=== PATIENT | female | born 1980 | race African-American/Black ===

== ENCOUNTER 2016-08-26 08:25 | Emergency (ER) | payer BC ==
[~2016-08-26] VITALS: Ht 170.2 cm; Wt 108.4 kg
[2016-08-26 09:07] LABS: BASO % 0 % (0-3); EOS % 0 % (0-3); HEMATOCRIT 39.7 % (36.0-47.0); HEMOGLOBIN 13.3 g/dL (12.0-15.5); LYMPH # 0.8 x10^3/uL (1.0-4.8); LYMPH % 7 % (24-48); MEAN CORPUSCULAR HEMOGLOBIN 28 pg (25-35); MEAN CORPUSCULAR HGB CONC 34 g/dL (31-37); MEAN CORPUSCULAR VOLUME 82 fL (79-100); MONO % 3 % (0-9); NEUT % 89 % (31-73); PLATELET COUNT 243 x10^3/uL (140-400); RED BLOOD COUNT 4.82 x10^6/uL (3.50-5.40); RED CELL DISTRIBUTION WIDTH 15.6 % (11.5-14.5); WHITE BLOOD COUNT 10.8 x10^3/uL (4.0-11.0)
[2016-08-26 09:12] LABS: CALCIUM 9.2 mg/dL (8.5-10.1); CREATININE 0.7 mg/dL (0.6-1.0); GFR 94.7; MAGNESIUM 1.5 mg/dL (1.8-2.4); POTASSIUM 3.4 mmol/L (3.5-5.1)
[2016-08-26] MEDS ORDERED: MAG HYDROX/AL HYDROX/SIMETH 30 ML ORAL.SUSP PO ONE (09:15)
[2016-08-26] MEDS ORDERED: ONDANSETRON PF 4 MG/2 ML VIAL. IV ONE (09:15)
[2016-08-26] MEDS ORDERED: LIDOCAINE 2% VISCOUS 15 ML SOLUTION. SWSW ONE ×2 (09:15)
[2016-08-26] MEDS ORDERED: IV NORMAL SALINE 1000ML BAG 1,000 ML IV SCH (09:15)
[2016-08-26] MEDS ORDERED: ALBUTEROL SULFATE 2.5 MG/3 ML NEBU. NEB ONE (09:15)
--- NOTE | 2016-08-26 09:19 | EKG ---
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
[2016-08-26 09:23] LABS: BACTERIA,URINE FEW /HPF (0-FEW); BILIRUBIN,URINE NEGATIVE (NEG); GLUCOSE,URINE 250 mg/dL (NEG); NITRITE,URINE NEGATIVE (NEG); PROTEIN,URINE NEGATIVE (NEG-TRACE); RBC,URINE 0 /HPF (0-2); SQUAMOUS EPITHELIAL CELL,UR MOD /LPF; UROBILINOGEN,URINE 0.2 mg/dL (0.2 mg/dL)
[2016-08-26 09:27] LABS: CKMB MASS 0.8 ng/mL (0.0-3.6); CREATINE KINASE 64 U/L (26-192)
[2016-08-26] MEDS ORDERED: MAGNESIUM SULFATE 1GM 100 ML IV ONE (09:30)
[2016-08-26 09:38] LABS: OBC FLU VALID
[2016-08-26] MEDS ORDERED: LABETALOL 20 MG/4 ML DISP.SYRIN. IVP ONE (09:45)
--- NOTE | 2016-08-26 09:58 | PHYS DOC ---
Past Medical History Past Medical History: Depression Past Surgical History: Tonsillectomy Additional Past Surgical Histo: GASTRIC SLEEVE Additional Information: 2 CIGS/DAY Drug Use: None Adult General Chief Complaint Chief Complaint: CHEST PAIN HPI HPI Patient is a 36 year old female who presents with complaint of chest pressure. Patient states that this started this morning upon awakening. Patient states that she is currently 17 weeks . Patient is . Patient follows with an SECURITIES SUPERVISOR physician at [facility]. Patient denies any history of similar symptoms. Patient states that she has been having difficulty with vomiting during and has been having vomiting prior to symptom onset. Patient denies any heartburn or GERD symptoms. Patient has been taking Phenergan at home with no relief in symptoms. Patient states that she has had productive cough of green sputum. Patient denies fevers or chills. Patient states that her pressure is not worsened by breathing. Patient denies radiation of pain. Patient rates her pain currently as 6 out of 10. Review of Systems Review of Systems Constitutional: Denies fever or chills [] Eyes: Denies change in visual acuity, redness, or eye pain [] HENT: Denies nasal congestion or sore throat [] Respiratory: Productive cough [] Cardiovascular: Chest pain [] GI: Nausea, vomiting, denies abdominal pain bloody stools or diarrhea [] : Denies dysuria or hematuria [] Musculoskeletal: Denies back pain or joint pain [] Integument: Denies rash or skin lesions [] Neurologic: Denies headache, focal weakness or sensory changes [] Current Medications Current Medications Current Medications Medications (Trade) Dose Ordered Sig/Thea Start Time Stop Time Status Last Admin Dose Admin Al Hydroxide/Mg Hydroxide (Mylanta Plus Xs) 30 ml 1X ONCE 08/26/16 09:15 08/26/16 09:16 DC 08/26/16 10:28 30 ML Albuterol Sulfate (Ventolin Neb Soln) 2.5 mg 1X ONCE 08/26/16 09:15 08/26/16 09:16 DC 08/26/16 09:16 2.5 MG Labetalol HCl (Normodyne) 20 mg 1X ONCE 08/26/16 09:45 08/26/16 09:46 DC 08/26/16 10:08 20 MG Lidocaine HCl (Viscous Lidocaine) 15 ml 1X ONCE 08/26/16 09:15 08/26/16 09:15 DC Lidocaine HCl 10 ml 10 ml 1X ONCE 08/26/16 09:15 08/26/16 09:16 DC 08/26/16 10:28 10 ML Magnesium Sulfate/ Dextrose (Magnesium Sulfate PREMIX 1GM) 100 ml @ 100 mls/hr 1X ONCE 08/26/16 09:30 08/26/16 10:29 DC 08/26/16 10:04 100 MLS/HR Ondansetron HCl (Zofran) 4 mg 1X ONCE 08/26/16 09:15 08/26/16 09:16 DC 08/26/16 09:02 4 MG Promethazine HCl (Phenergan Im) 25 mg 1X ONCE 08/26/16 10:00 08/26/16 10:01 DC 08/26/16 09:59 25 MG Sodium Chloride (Iv Sodium Chloride 0.9% 1000ml Bag) 1,000 ml @ 1,000 mls/hr Q1H 08/26/16 09:15 08/26/16 10:14 DC 08/26/16 09:02 1,000 MLS/HR Allergies Allergies Allergies Coded Allergies Type Severity Reaction Last Updated Verified amoxicillin Allergy Intermediate Hives 08/26/16 Yes clavulanic acid Allergy Intermediate Hives 08/26/16 Yes Physical Exam Physical Exam Constitutional: Alert, afebrile, appears in mild to moderate discomfort. [] HENT: Normocephalic, atraumatic, bilateral external ears normal, oropharynx moist, no oral exudates, nose normal. [] Eyes: PERRLA, EOMI, conjunctiva normal, no discharge. [] Neck: Normal range of motion, no tenderness, supple, no stridor. [] Cardiovascular:Heart rate regular rhythm, no murmur [] Lungs & Thorax: Mildly restricted air movement bilaterally, occasional wheezes, no rales [] Abdomen: Bowel sounds normal, soft, no tenderness, no masses, no pulsatile masses. [] Skin: Warm, dry, no erythema, no rash. [] Back: No tenderness, no CVA tenderness. [] Extremities: No tenderness, no cyanosis, no clubbing, ROM intact, no edema. [] Neurologic: Alert and oriented X 3, normal motor function, normal sensory function, no focal deficits noted. [] Current Patient Data Vital Signs Vital Signs Date Time Temp Pulse Resp B/P Pulse Ox O2 Delivery O2 Flow Rate FiO2 08/26/16 10:08 70 189/89 08/26/16 09:16 99 Room Air 08/26/16 08:37 98.1 18 98.1 Lab Values Laboratory Tests Test 08/26/16 08:41 08/26/16 09:05 White Blood Count 10.8x10^3/uL (4.0-11.0) Red Blood Count 4.82x10^6/uL (3.50-5.40) Hemoglobin 13.3g/dL (12.0-15.5) Hematocrit 39.7% (36.0-47.0) Mean Corpuscular Volume 82fL (79-100) Mean Corpuscular Hemoglobin 28pg (25-35) Mean Corpuscular Hemoglobin Concent 34g/dL (31-37) Red Cell Distribution Width 15.6% (11.5-14.5) H Platelet Count 243x10^3/uL (140-400) Neutrophils (%) (Auto) 89% (31-73) H Lymphocytes (%) (Auto) 7% (24-48) L Monocytes (%) (Auto) 3% (0-9) Eosinophils (%) (Auto) 0% (0-3) Basophils (%) (Auto) 0% (0-3) Neutrophils # (Auto) 9.7x10^3uL (1.8-7.7) H Lymphocytes # (Auto) 0.8x10^3/uL (1.0-4.8) L Monocytes # (Auto) 0.3x10^3/uL (0.0-1.1) Eosinophils # (Auto) 0.0x10^3/uL (0.0-0.7) Basophils # (Auto) 0.0x10^3/uL (0.0-0.2) Segmented Neutrophils % 89% (35-66) H Lymphocytes % 10% (24-48) L Monocytes % 1% (0-10) Platelet Estimate Adequate (ADEQUATE) Anisocytosis Present D-Dimer (Rosana) 0.29ug/mlFEU (0.00-0.50) Urine Collection Type Unknown Urine Color Yellow Urine Clarity Clear Urine pH 6.0 Urine Specific [place] 1.020 Urine Protein Negativemg/dL (NEG-TRACE) Urine Glucose (UA) 250mg/dL (NEG) Urine Ketones (Stick) >=80mg/dL (NEG) Urine Blood Negative (NEG) Urine Nitrite Negative (NEG) Urine Bilirubin Negative (NEG) Urine Urobilinogen Dipstick 0.2mg/dL (0.2 mg/dL) Urine Leukocyte Esterase Small (NEG) Urine RBC 0/HPF (0-2) Urine WBC 1-4/HPF (0-4) Urine Squamous Epithelial Cells Mod/LPF Urine Bacteria Few/HPF (0-FEW) Urine Mucus Mod/LPF Sodium Level 139mmol/L (136-145) Potassium Level 3.4mmol/L (3.5-5.1) L Chloride Level 100mmol/L (98-107) Carbon Dioxide Level 26mmol/L (21-32) Anion Gap 13 (6-14) Blood Urea Nitrogen 14mg/dL (7-20) Creatinine 0.7mg/dL (0.6-1.0) Estimated GFR (Cockcroft-Gault) 94.7 Glucose Level 139mg/dL (70-99) H Calcium Level 9.2mg/dL (8.5-10.1) Magnesium Level 1.5mg/dL (1.8-2.4) L Creatine Kinase 64U/L (26-192) Creatine Kinase MB (Mass) 0.8ng/mL (0.0-3.6) Creatine Kinase MB Relative Index % (0-4) Troponin I Quantitative < 0.017ng/mL (0.000-0.055) TN-Fyn-X-Type Natriuretic Peptide 44pg/mL (0-124) Influenza Type A Antigen Negative (NEGATIVE) Influenza Type B Antigen Negative (NEGATIVE) Laboratory Tests 08/26/16 08:41 Laboratory Tests 08/26/16 08:41 EKG EKG Interpreted by me: Heart rate 62, sinus rhythm, normal intervals, normal axis, no acute ST/T-wave abnormalities present [] Radiology/Procedures Radiology/Procedures Not performed [] Course & Med Decision Making Course & Med Decision Making Pertinent Labs and Imaging studies reviewed. (See chart for details) Patient was given Maalox and viscous lidocaine as well as albuterol. On reevaluation, patient states that she is still having nausea. The patient was given IM Phenergan which helped with her nausea. A bedside ultrasound was done and showed a viable intrauterine with heart rate of 149 bpm. Patient was found to be significantly hypertensive in the emergency department and was given IV labetalol. The patient's last blood pressure check was 130/63. The patient had sustained high blood pressure until treatment. I believe this patient will need to be on hypertensive medication and we'll start oral labetalol at home. Advised follow-up in 3 days with patient's SECURITIES SUPERVISOR doctor. Advised return emergency department for any worsening symptoms. Patient voiced understanding and in agreement with treatment plan. Dragon Disclaimer Dragon Disclaimer This electronic medical record was generated, in whole or in part, using a voice recognition dictation system. Departure Departure Impression: Primary Impression: Hypertension during Additional Impressions: Hypomagnesemia Vomiting during Disposition: 01 HOME, SELF-CARE Condition: IMPROVED Referrals: NO PCP (PCP) Patient Instructions: Hypertension During , Nausea and Vomiting Additional Instructions: Follow-up with your SECURITIES SUPERVISOR in 3 days. Return to the emergency department for any worsening symptoms. Scripts Labetalol Hcl 100 Mg Tablet1 Tab PO BID #60 TAB Ref 0 Prov:VICTORINO ALVARADO MD 08/26/16 Problem Qualifiers Primary Impression: Hypertension during Hypertension in type: gestational hypertension without significant proteinuria Trimester: second trimester Qualified Code: O13.2 - Gestational [-induced] hypertension without significant proteinuria, second trimester VICTORINO ALVARADO MD Aug 26, 2016 09:58
[2016-08-26] MEDS ORDERED: PROMETHAZINE IM 25 MG/ML VIAL IM ONE (10:00)
[2016-08-26 10:12] LABS: ANISOCYTOSIS PRESENT; PLT ESTIMATE ADEQUATE (ADEQUATE)
[2016-08-26] MEDS ORDERED: LABE100T3 PO (11:10)
[2016-08-26 11:30] VITALS: BP 157/87
[2016-08-26 12:02] LABS: ALBUMIN 3.4 g/dL (3.4-5.0); DIRECT BILIRUBIN 0.1 mg/dL (0.0-0.2); TOTAL BILIRUBIN 0.3 mg/dL (0.2-1.0); TOTAL PROTEIN 7.5 g/dL (6.4-8.2)
== END 2016-08-26 11:47 | disposition home or self-care (01) ==
LOC: ER 08:25
DX: O16.2 Unspecified maternal hypertension, second trimester (principal); O99.282 Endocrine, nutritional and metabolic diseases complicating pregnancy, second trimester; E83.42 Hypomagnesemia; O21.0 Mild hyperemesis gravidarum; O26.892 Other specified pregnancy related conditions, second trimester; R05 Cough; R06.2 Wheezing; O99.342 Other mental disorders complicating pregnancy, second trimester; F32.9 Major depressive disorder, single episode, unspecified; O99.332 Smoking (tobacco) complicating pregnancy, second trimester; Z98.84 Bariatric surgery status; Z3A.17 17 weeks gestation of pregnancy; Z88.8 Allergy status to other drugs, medicaments and biological substances; Z88.1 Allergy status to other antibiotic agents
CPT/HCPCS: 36415; 80048; 80076; 81001; 82553; 83735; 83880; 84484; 85007; 85027; 85379; 87086; 87804; 93005; 96361; 96365; 96366; 96372; 96375; 99285; J2405; J2550; J3475; J3490; J7030

== ENCOUNTER 2016-10-17 15:33 | Inpatient (IN) | payer BC ==
[~2016-10-17] VITALS: Ht 170.2 cm; Wt 113.4 kg
[~2016-10-17 15:33] MED LIST: LABE100T3 PO
--- NOTE | 2016-10-17 15:59 | PHYS DOC ---
Past Medical History Past Medical History: Depression, Other Additional Past Medical Histor: "PANIC ATTACKS" Past Surgical History: Tonsillectomy Additional Past Surgical Histo: GASTRIC SLEEVE Alcohol Use: None Drug Use: None Adult General Chief Complaint Chief Complaint: CHEST WALL PAIN HPI HPI 36-year-old female who states she's had significant chest pressure sensation someone sitting on her chest for the last day. She is had significant nausea and vomiting throughout her and is actively vomiting in the room. Patient was seen several weeks ago and had an elevated blood pressure at that time was prescribed oral medications for several days but her blood pressure returned to normal she states. She's been on multiple medications for nausea but states nothing has been successful. This is her third the first of which were full-term without complication and a second was a miscarriage approximately 4 months in the . Today she states she is at an estimated 25 weeks gestation and had a ultrasound several weeks ago that was otherwise normal. She follows up with OB care in [place]. She states she normally does not have issues with her blood pressure when she is not . She denies any significant shortness of breath. She does have some mild abdominal pain for the past two days but denies any vaginal bleeding or discharge. Review of Systems Review of Systems Constitutional: Denies fever or chills [] Eyes: Denies change in visual acuity, redness, or eye pain [] HENT: Denies nasal congestion or sore throat [] Respiratory: Denies cough or shortness of breath [] Cardiovascular: No additional information not addressed in HPI [] GI: Has abdominal pain, has nausea, has vomiting, denies bloody stools or diarrhea [] : Denies dysuria or hematuria [] Musculoskeletal: Denies back pain or joint pain [] Integument: Denies rash or skin lesions [] Neurologic: Denies headache, focal weakness or sensory changes [] Endocrine: Denies polyuria or polydipsia [] Current Medications Current Medications Current Medications Medications (Trade) Dose Ordered Sig/Thea Start Time Stop Time Status Last Admin Dose Admin Labetalol HCl (Normodyne) 20 mg 1X ONCE 10/17/16 16:00 10/17/16 16:01 DC 10/17/16 16:01 20 MG Metoclopramide HCl (Reglan) 10 mg 1X ONCE 10/17/16 16:00 10/17/16 16:01 DC 10/17/16 16:01 10 MG Sodium Chloride (Iv Sodium Chloride 0.9% 1000ml Bag) 1,000 ml @ 1,000 mls/hr 1X ONCE 10/17/16 16:00 10/17/16 16:59 DC 10/17/16 16:00 1,000 MLS/HR Allergies Allergies Allergies Coded Allergies Type Severity Reaction Last Updated Verified amoxicillin Allergy Intermediate Hives 08/26/16 Yes clavulanic acid Allergy Intermediate Hives 08/26/16 Yes Physical Exam Physical Exam Constitutional: Well developed, well nourished, no acute distress, non-toxic appearance. [] HENT: Normocephalic, atraumatic, bilateral external ears normal, oropharynx moist, no oral exudates, nose normal. [] Eyes: PERRLA, EOMI, conjunctiva normal, no discharge. [] Neck: Normal range of motion, no tenderness, supple, no stridor. [] Cardiovascular:Heart rate regular rhythm, no murmur [] Lungs & Thorax: Bilateral breath sounds clear to auscultation [] Abdomen: Bowel sounds normal, soft, no tenderness, no masses, no pulsatile masses. [] Skin: Warm, dry, no erythema, no rash. [] Back: No tenderness, no CVA tenderness. [] Extremities: No tenderness, no cyanosis, no clubbing, ROM intact, no edema. [] Neurologic: Alert and oriented X 3, normal motor function, normal sensory function, no focal deficits noted. [] Psychologic: Affect normal, judgement normal, mood normal. [] Current Patient Data Vital Signs Vital Signs Date Time Temp Pulse Resp B/P Pulse Ox O2 Delivery O2 Flow Rate FiO2 10/17/16 16:08 89 18 144/80 99 Room Air 10/17/16 15:48 98.5 98.5 Lab Values Laboratory Tests Test 10/17/16 14:49 10/17/16 15:30 10/17/16 15:59 POC Urine HCG, Qualitative Hcg positive (Negative) Urine Color Yellow Urine Clarity Clear Urine pH 6.5 Urine Specific [place] 1.020 Urine Protein Negativemg/dL (NEG-TRACE) Urine Glucose (UA) Negativemg/dL (NEG) Urine Ketones (Stick) >=80mg/dL (NEG) Urine Blood Trace (NEG) Urine Nitrite Negative (NEG) Urine Bilirubin Negative (NEG) Urine Urobilinogen Dipstick 1.0mg/dL (0.2 mg/dL) Urine Leukocyte Esterase Moderate (NEG) Urine RBC Rare/HPF (0-2) Urine WBC 1-4/HPF (0-4) Urine Squamous Epithelial Cells Occ/LPF Urine Bacteria Few/HPF (0-FEW) Urine Mucus Slight/LPF White Blood Count 4.6x10^3/uL (4.0-11.0) Red Blood Count 3.71x10^6/uL (3.50-5.40) Hemoglobin 10.7g/dL (12.0-15.5) L Hematocrit 32.3% (36.0-47.0) L Mean Corpuscular Volume 87fL (79-100) Mean Corpuscular Hemoglobin 29pg (25-35) Mean Corpuscular Hemoglobin Concent 33g/dL (31-37) Red Cell Distribution Width 14.8% (11.5-14.5) H Platelet Count 148x10^3/uL (140-400) Neutrophils (%) (Auto) 76% (31-73) H Lymphocytes (%) (Auto) 10% (24-48) L Monocytes (%) (Auto) 13% (0-9) H Eosinophils (%) (Auto) 0% (0-3) Basophils (%) (Auto) 0% (0-3) Neutrophils # (Auto) 3.5x10^3uL (1.8-7.7) Lymphocytes # (Auto) 0.5x10^3/uL (1.0-4.8) L Monocytes # (Auto) 0.6x10^3/uL (0.0-1.1) Eosinophils # (Auto) 0.0x10^3/uL (0.0-0.7) Basophils # (Auto) 0.0x10^3/uL (0.0-0.2) Sodium Level 139mmol/L (136-145) Potassium Level 3.4mmol/L (3.5-5.1) L Chloride Level 103mmol/L (98-107) Carbon Dioxide Level 24mmol/L (21-32) Anion Gap 12 (6-14) Blood Urea Nitrogen 8mg/dL (7-20) Creatinine 0.6mg/dL (0.6-1.0) Estimated GFR (Cockcroft-Gault) 136.9 Glucose Level 92mg/dL (70-99) Calcium Level 8.8mg/dL (8.5-10.1) Total Bilirubin 0.2mg/dL (0.2-1.0) Direct Bilirubin 0.1mg/dL (0.0-0.2) Aspartate Amino Transferase (AST) 13U/L (15-37) L Alanine Aminotransferase (ALT) 19U/L (14-59) Alkaline Phosphatase 51U/L (46-116) Troponin I Quantitative < 0.017ng/mL (0.000-0.055) Total Protein 6.8g/dL (6.4-8.2) Albumin 3.0g/dL (3.4-5.0) L Laboratory Tests 10/17/16 15:59 Laboratory Tests 10/17/16 15:59 EKG EKG EKG as interpreted by me shows a sinus rhythm with a rate of 73 bpm. There are no acute ST findings in this EKG. This is a nonischemic EKG. Intervals are normal. Radiology/Procedures Radiology/Procedures [] Course & Med Decision Making Course & Med Decision Making Pertinent Labs and Imaging studies reviewed. (See chart for details) This 36-year-old female will be admitted for further observation and treatment due to the fact that she has an elevated blood pressure and is having ongoing chest pressure. A dose of IV labetalol and IV Reglan will be given as well as a fluid bolus. Full laboratory workup will be obtained. heart tones will be taken. Patient will then be admitted to the CONSULTING SOLUTION DIRECTOR floor for further observation and treatment. Her laboratory workup is unrevealing. A dose of IV labetalol improved her blood pressure 150/90. Patient is still symptomatic and actively vomiting. I discussed the need to admit the patient with the OB doctor, Dr. Zaragoza, who agreed to admit the patient for further evaluation treatment for ongoing hypertension and nausea and vomiting. She requested I order PRN Zofran for the patient's nausea. She'll be admitted for further evaluation and treatment. Dragon Disclaimer Dragon Disclaimer This electronic medical record was generated, in whole or in part, using a voice recognition dictation system. Departure Departure Impression: Primary Impression: Vomiting during Additional Impression: Hypertensive urgency Disposition: 09 ADMITTED INPATIENT Admitting Physician: Other Condition: STABLE Referrals: NO PCP (PCP) Problem Qualifiers THOMAS ESPINOZA DO Oct 17, 2016 15:59
[2016-10-17] MEDS ORDERED: LABETALOL 20 MG/4 ML DISP.SYRIN. IVP ONE (16:00)
[2016-10-17] MEDS ORDERED: METOCLOPRAMIDE HCL 10 MG/2 ML VIAL. IV ONE (16:00)
[2016-10-17] MEDS ORDERED: IV NORMAL SALINE 1000ML BAG 1,000 ML IV ONE (16:00)
[2016-10-17 16:08] LABS: BASO % 0 % (0-3); EOS % 0 % (0-3); HEMATOCRIT 32.3 % (36.0-47.0); HEMOGLOBIN 10.7 g/dL (12.0-15.5); LYMPH # 0.5 x10^3/uL (1.0-4.8); LYMPH % 10 % (24-48); MEAN CORPUSCULAR HEMOGLOBIN 29 pg (25-35); MEAN CORPUSCULAR HGB CONC 33 g/dL (31-37); MEAN CORPUSCULAR VOLUME 87 fL (79-100); MONO % 13 % (0-9); NEUT % 76 % (31-73); PLATELET COUNT 148 x10^3/uL (140-400); RED BLOOD COUNT 3.71 x10^6/uL (3.50-5.40); RED CELL DISTRIBUTION WIDTH 14.8 % (11.5-14.5); WHITE BLOOD COUNT 4.6 x10^3/uL (4.0-11.0)
[2016-10-17 16:22] LABS: BILIRUBIN,URINE NEGATIVE (NEG); GLUCOSE,URINE NEGATIVE (NEG); NITRITE,URINE NEGATIVE (NEG); PH,URINE 6.5; PROTEIN,URINE NEGATIVE (NEG-TRACE)
[2016-10-17 16:23] LABS: CALCIUM 8.8 mg/dL (8.5-10.1); CREATININE 0.6 mg/dL (0.6-1.0); GFR 136.9; POTASSIUM 3.4 mmol/L (3.5-5.1)
[2016-10-17 16:31] LABS: BACTERIA,URINE FEW /HPF (0-FEW); RBC,URINE RARE /HPF (0-2); SQUAMOUS EPITHELIAL CELL,UR OCC /LPF
[2016-10-17] MEDS ORDERED: IV NORMAL SALINE 1000ML BAG 1,000 ML IV SCH (16:36)
[2016-10-17] MEDS ORDERED: ACETAMINOPHEN 325 MG TABLET. PO PRN (16:45)
[2016-10-17 16:51] LABS: DIRECT BILIRUBIN 0.1 mg/dL (0.0-0.2); TOTAL BILIRUBIN 0.2 mg/dL (0.2-1.0); TOTAL PROTEIN 6.8 g/dL (6.4-8.2)
--- NOTE | 2016-10-17 17:06 | ACF ---
Admission Forms Criteria VOMITING Clinical Indications for Admission to Inpatient Care ( Place 'X' for any and all applicable criteria): Admission is indicated for ANY ONE of the following(1)(2)(3): [X]I. Inpatient admission required rather than observation care because of ANY ONE of the following: [ ]i) Hemodynamic instability that is severe or persistent [X]ii) Vomiting that is severe or persistent [ ]iii) Severe electrolyte abnormalities requiring inpatient care [ ]iv) Severe pain requiring acute inpatient management [ ]v) High fever or infection requiring inpatient admission as indicated by ANY ONE of the following(7)(8): [ ]1) Appropriate outpatient or observation care antimicrobial treatment unavailable, not effective, or not feasible [ ]2) Documented bacteremia [ ]3) Temp >104.9 degrees F (40.5 degrees C) (oral) [ ]4) Temp >103.1 degrees F (39.5 C) (oral) or <96.8 degrees F (36 C) (rectal) that does not respond to all emergency treatment measures [ ]vi) Acute renal failure [ ]vii) IV fluid to replace significant ongoing losses (greater than 3 L/m2 per day) [ ]viii) Parenteral nutrition regimen that must be implemented on inpatient basis [ ]ix) Other condition, treatment or monitoring requiring inpatient admission [ ]II. Complete or partial gastrointestinal obstruction [ ]III. Other cause of vomiting requiring hospitalization (eg, poisoning, increased intracranial pressure) [ ]IV. Vomiting due to significant metabolic derangement (eg, severe hypercalcemia, diabetic ketoacidosis) Extended stay beyond goal length of stay may be needed for(1)(4): [ ]a) Severe vomiting [ ]b) Persistent vomiting, vital sign changes, severe electrolyte imbalance , or diagnosed cause of vomiting that requires continued hospitalization (eg, gastrointestinal obstruction , increased intracranial pressure) [ ]c) Surgery to treat identified causes of vomiting (eg, bowel obstruction , intracranial process) [ ]d) Comorbid illness that requires inpatient care (eg, acute heart failure , renal failure) [ ]e) Need for inpatient endoscopy The original [employer] [employer] content created by [email or web address] has been revised. The portions of the content which have been revised are identified through the use of italic text or in bold, and [facility] [employer] has neither reviewed nor approved the modified material. All other unmodified content is copyright [facility]. Please see references footnoted in the original [facility] edition 2016 Admission Criteria Met?: Yes ROLANDO YANG Oct 17, 2016 17:06
[2016-10-17] MEDS ORDERED: ONDANSETRON PF 4 MG/2 ML VIAL. IV ONE (17:15)
[2016-10-17] MEDS ORDERED: ONDANSETRON PF 4 MG/2 ML VIAL. IV PRN (17:15)
[2016-10-17] MEDS ORDERED: IV DEXTROSE 5%-LACT RINGERS 1,000 ML IV SCH (18:30)
[2016-10-17] MEDS ORDERED: DIPHENHYDRAMINE 50 MG/ML VIAL IVP PRN (18:30)
[2016-10-17] MEDS ORDERED: PROCHLORPERAZINE 5 MG TABLET. PO PRN (18:30)
[2016-10-17] MEDS ORDERED: PROCHLORPERAZINE 25 MG SUPP.RECT. PR PRN (18:45)
[2016-10-17] MEDS ORDERED: CLINDAMYCIN 600MG PREMIX 50 ML IV ONE (20:30)
[2016-10-17] MEDS: PROMETHAZINE IM 25 MG/ML VIAL IM PRN (20:56)
[2016-10-17] MEDS ORDERED: LABETALOL HCL 200 MG TABLET PO SCH (21:00)
[2016-10-18] MEDS: PROMETHAZINE IM 25 MG/ML VIAL IM PRN (03:08)
--- NOTE | 2016-10-18 06:15 | EKG ---
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
[2016-10-18 08:46] VITALS: BP 155/83
[2016-10-18] MEDS ORDERED: METOCLOPRAMIDE HCL 10 MG/2 ML VIAL. IV ONE (09:15)
== END 2016-10-18 11:45 | disposition home or self-care (01) | DRG 781 ==
LOC: ER 15:33 → 3 SO LND 16:26
PROVIDERS: ADMIT Obstetrics & Gynecology; ATTEND Obstetrics & Gynecology
DX: O21.2 Late vomiting of pregnancy (principal); O16.2 Unspecified maternal hypertension, second trimester; F41.0 Panic disorder [episodic paroxysmal anxiety]; O99.342 Other mental disorders complicating pregnancy, second trimester; F32.9 Major depressive disorder, single episode, unspecified; I16.0 Hypertensive urgency; Z3A.25 25 weeks gestation of pregnancy
CPT/HCPCS: 36415; 80048; 80076; 81001; 81025; 84484; 85027; 87086; 93005; 96361; 96374; 96375; J2405; J2550; J2765; J3490; J7030; 99285-25

== ENCOUNTER 2016-10-19 09:24 | Observation (INO) | payer BC ==
[~2016-10-19] VITALS: Ht 170.2 cm; Wt 113.4 kg
[2016-10-19] MEDS ORDERED: hydrALAZINE 20 MG/ML VIAL. IVP ONE (10:15)
[2016-10-19 10:38] LABS: BILIRUBIN,URINE NEGATIVE (NEG); GLUCOSE,URINE NEGATIVE (NEG); NITRITE,URINE NEGATIVE (NEG); PROTEIN,URINE 30 mg/dL (NEG-TRACE)
[2016-10-19 10:58] LABS: BACTERIA,URINE FEW /HPF (0-FEW); RBC,URINE OCC /HPF (0-2); SQUAMOUS EPITHELIAL CELL,UR MOD /LPF
--- NOTE | 2016-10-19 11:13 | PHYS DOC ---
Past Medical History Past Medical History: Depression, Other Additional Past Medical Histor: "PANIC ATTACKS" Past Surgical History: Tonsillectomy Additional Past Surgical Histo: GASTRIC SLEEVE Alcohol Use: None Drug Use: None Adult General Chief Complaint Chief Complaint: CHEST PAIN HPI HPI 36-year-old female who is approximately 25 weeks by last menstrual period presenting to the emergency department with chest pressure high blood pressure and nausea. Her pain is nonradiating mild intermittent and without alleviating factors. She recently was hospitalized for hypertension management and discharged yesterday. She denies shortness of breath abdominal pain. She denies vaginal bleeding. She denies unilateral leg swelling. She denies her chest pain since being sudden in onset. She denies hemoptysis. She is not tachycardic or hypoxic. Review of systems was negative for fevers chills. Positive for nausea with one episode of emesis. Her emesis is nonbloody and nonbilious. All other review of systems is negative unless otherwise noted in history of present illness. Review of Systems Review of Systems SEE ABOVE. Current Medications Current Medications Current Medications Medications (Trade) Dose Ordered Sig/Thea Start Time Stop Time Status Last Admin Dose Admin Hydralazine HCl (Apresoline) 10 mg 1X ONCE 10/19/16 10:15 10/19/16 10:16 DC 10/19/16 10:46 10 MG Metoclopramide HCl (Reglan) 10 mg 1X ONCE 10/19/16 11:30 10/19/16 11:31 DC 10/19/16 11:35 10 MG Allergies Allergies Allergies Coded Allergies Type Severity Reaction Last Updated Verified amoxicillin Allergy Intermediate Hives 08/26/16 Yes clavulanic acid Allergy Intermediate Hives 08/26/16 Yes Physical Exam Physical Exam Constitutional: Well developed, well nourished, no acute distress, non-toxic appearance. HENT: Normocephalic, atraumatic, bilateral external ears normal, oropharynx moist, no oral exudates, nose normal. [] Eyes: PERRLA, EOMI, conjunctiva normal, no discharge. [] Neck: Normal range of motion, no tenderness, supple, no stridor. Cardiovascular:Heart rate regular rhythm, no murmur [] Lungs & Thorax: Bilateral breath sounds clear to auscultation Abdomen: Bowel sounds normal, soft, no tenderness, no masses, no pulsatile masses. [] Skin: Warm, dry, no erythema, no rash. [] Back: No tenderness, no CVA tenderness. Extremities: No tenderness, no cyanosis, no clubbing, ROM intact, no edema. [] Neurologic: Alert and oriented X 3, normal motor function, normal sensory function, no focal deficits noted. Psychologic: Affect normal, judgement normal, mood normal. Current Patient Data Vital Signs Vital Signs Date Time Temp Pulse Resp B/P Pulse Ox O2 Delivery O2 Flow Rate FiO2 10/19/16 10:46 58 175/85 10/19/16 09:45 98.5 16 100 Room Air 98.5 Lab Values Laboratory Tests Test 10/19/16 09:32 10/19/16 10:43 Urine Collection Type Unknown Urine Color Yellow Urine Clarity Clear Urine pH 6.0 Urine Specific [place] 1.020 Urine Protein 30mg/dL (NEG-TRACE) Urine Glucose (UA) Negativemg/dL (NEG) Urine Ketones (Stick) >=80mg/dL (NEG) Urine Blood Trace (NEG) Urine Nitrite Negative (NEG) Urine Bilirubin Negative (NEG) Urine Urobilinogen Dipstick 1.0mg/dL (0.2 mg/dL) Urine Leukocyte Esterase Small (NEG) Urine RBC Occ/HPF (0-2) Urine WBC 5-10/HPF (0-4) Urine Squamous Epithelial Cells Mod/LPF Urine Bacteria Few/HPF (0-FEW) Urine Mucus Mod/LPF White Blood Count 8.3x10^3/uL (4.0-11.0) # Red Blood Count 3.86x10^6/uL (3.50-5.40) Hemoglobin 11.1g/dL (12.0-15.5) L Hematocrit 33.3% (36.0-47.0) L Mean Corpuscular Volume 86fL (79-100) Mean Corpuscular Hemoglobin 29pg (25-35) Mean Corpuscular Hemoglobin Concent 34g/dL (31-37) Red Cell Distribution Width 14.6% (11.5-14.5) H Platelet Count 181x10^3/uL (140-400) Neutrophils (%) (Auto) 83% (31-73) H Lymphocytes (%) (Auto) 9% (24-48) L Monocytes (%) (Auto) 8% (0-9) Eosinophils (%) (Auto) 0% (0-3) Basophils (%) (Auto) 0% (0-3) Neutrophils # (Auto) 6.9x10^3uL (1.8-7.7) Lymphocytes # (Auto) 0.7x10^3/uL (1.0-4.8) L Monocytes # (Auto) 0.7x10^3/uL (0.0-1.1) Eosinophils # (Auto) 0.0x10^3/uL (0.0-0.7) Basophils # (Auto) 0.0x10^3/uL (0.0-0.2) Sodium Level 140mmol/L (136-145) Potassium Level 3.1mmol/L (3.5-5.1) L Chloride Level 103mmol/L (98-107) Carbon Dioxide Level 25mmol/L (21-32) Anion Gap 12 (6-14) Blood Urea Nitrogen 7mg/dL (7-20) Creatinine 0.6mg/dL (0.6-1.0) Estimated GFR (Cockcroft-Gault) 136.9 Glucose Level 104mg/dL (70-99) H Calcium Level 8.8mg/dL (8.5-10.1) Total Bilirubin 0.3mg/dL (0.2-1.0) Direct Bilirubin 0.1mg/dL (0.0-0.2) Aspartate Amino Transferase (AST) 23U/L (15-37) Alanine Aminotransferase (ALT) 33U/L (14-59) Alkaline Phosphatase 54U/L (46-116) Troponin I Quantitative < 0.017ng/mL (0.000-0.055) Total Protein 7.2g/dL (6.4-8.2) Albumin 3.1g/dL (3.4-5.0) L Lipase 103U/L (73-393) Laboratory Tests 10/19/16 10:43 Laboratory Tests 10/19/16 10:43 EKG EKG [] Radiology/Procedures Radiology/Procedures [] Course & Med Decision Making Course & Med Decision Making Pertinent Labs and Imaging studies reviewed. (See chart for details) [] 36-year-old 25 week female presenting to the emergency department with worsening nausea and hypertension. Triage vital signs showed significant hypertension at 180/86. Patient was given hydralazine in the emergency department which brought this down. Pertinent physical exam showed a nontender abdomen. She follows with Dr. Vizcarra through [facility] whose motor expert actually called our emergency department and instructed that the patient was to be transferred to the [facility] for probable admission for hypertension management through Dr. Amezcua at the [facility]. I also discussed the case with Dr. Amezcua who stated that she had agreed to admit the patient if the patient arrived at their [facility] triage unit however felt the patient did not need highly specialized obstetrics and recommended the patient be admitted to our hospital. I subsequently discussed the case with Dr. Skelton who agreed to evaluate the patient in their labor and delivery unit. All of the physicians, I discussed the case with stated that the patient was being treated for superimposed chronic hypertension and . The patient's blood pressure had improved on reassessment was approximately 157/ 86. Second reevaluation on blood pressure shows 148/75. I had ordered some basic blood work which was grossly unremarkable. The patient was in transferred to the labor and delivery unit for further evaluation workup and care by Dr. Skelton. Dragon Disclaimer Dragon Disclaimer This electronic medical record was generated, in whole or in part, using a voice recognition dictation system. Departure Departure Impression: Primary Impression: Hypertension during Disposition: 05 TRANSFER OTHER (labor and delivery unit) Condition: STABLE Referrals: NO PCP (PCP) Additional Instructions: Go directly to labor and delivery for further evaluation workup and care. THUAN MATAMOROS MD Oct 19, 2016 11:13
--- NOTE | 2016-10-19 11:26 | RAD ---
Indication chest pain. History of hypertension. A single view of the chest was obtained. No prior imaging is available. Heart size is at the upper limits of normal. There is no congestive heart failure. There is no focal infiltrate significant pleural fluid collection or pneumothorax. The bony structures appear grossly intact. IMPRESSION: No acute or focal process in the chest
[2016-10-19 11:30] LABS: BASO % 0 % (0-3); EOS % 0 % (0-3); HEMATOCRIT 33.3 % (36.0-47.0); HEMOGLOBIN 11.1 g/dL (12.0-15.5); LYMPH # 0.7 x10^3/uL (1.0-4.8); LYMPH % 9 % (24-48); MEAN CORPUSCULAR HEMOGLOBIN 29 pg (25-35); MEAN CORPUSCULAR HGB CONC 34 g/dL (31-37); MEAN CORPUSCULAR VOLUME 86 fL (79-100); MONO % 8 % (0-9); NEUT % 83 % (31-73); PLATELET COUNT 181 x10^3/uL (140-400); RED BLOOD COUNT 3.86 x10^6/uL (3.50-5.40); RED CELL DISTRIBUTION WIDTH 14.6 % (11.5-14.5); WHITE BLOOD COUNT 8.3 x10^3/uL (4.0-11.0)
[2016-10-19] MEDS ORDERED: METOCLOPRAMIDE HCL 10 MG/2 ML VIAL. IV ONE (11:30)
[2016-10-19 12:00] LABS: ALBUMIN 3.1 g/dL (3.4-5.0); CALCIUM 8.8 mg/dL (8.5-10.1); CREATININE 0.6 mg/dL (0.6-1.0); DIRECT BILIRUBIN 0.1 mg/dL (0.0-0.2); GFR 136.9; POTASSIUM 3.1 mmol/L (3.5-5.1); TOTAL BILIRUBIN 0.3 mg/dL (0.2-1.0); TOTAL PROTEIN 7.2 g/dL (6.4-8.2)
[2016-10-19] MEDS ORDERED: LABETALOL HCL 200 MG TABLET PO ONE (13:30)
[2016-10-19] MEDS ORDERED: PROMETHAZINE IM 25 MG/ML VIAL IM ONE (13:30)
[2016-10-19 14:06] VITALS: BP 175/84
== END 2016-10-19 16:55 | disposition home or self-care (01) ==
LOC: ER 09:24 → 3 SO LND 12:22
PROVIDERS: ADMIT Obstetrics & Gynecology; ATTEND Obstetrics & Gynecology
DX: O10.912 Unspecified pre-existing hypertension complicating pregnancy, second trimester (principal); O26.892 Other specified pregnancy related conditions, second trimester; R07.89 Other chest pain; O21.2 Late vomiting of pregnancy; R11.0 Nausea; O99.342 Other mental disorders complicating pregnancy, second trimester; F32.9 Major depressive disorder, single episode, unspecified; Z3A.25 25 weeks gestation of pregnancy
CPT/HCPCS: 36415; 71010; 80048; 80076; 81001; 83690; 84484; 85027; 87086; 96372; 96374; 96375; G0378; G0379; J0360; J2550; J2765